=== PATIENT | female | born 1975 | race Caucasian/White ===

== ENCOUNTER 2018-05-09 06:10 | Emergency (ER) | payer MEDICARE, SELFPAY ==
[2018-05-09 06:16] VITALS: BP 125/76; PULSE 63; RESP 16; TEMP 36.9; O2SAT 98
--- NOTE | 2018-05-09 06:27 | W.ED.GENAD ---
Discharge Plan Disposition Patient Disposition: HOME Condition: Good Discharge Details Chief Complaint: Headache Clinical Impression: Headache Primary Care Provider: NONE,NONE ED Provider: Reginaldo Mcghee [place] Meds and New Rx's Prescriptions: Continue ibuprofen 200 MG capsule 600 mg PO Q6H PRN PRNQty: 0 RF: 0 acetaminophen 500 MG tablet 500 mg PO Q6H PRN PRNQty: 0 RF: 0 Discharge Instructions Instructions: General Headache (ED) Additional Instructions: Home and rest today. Care management will help with finding you primary care. Return to ED for fever, new/severe headache, neurological changes. Referrals: Care Management [Provider Group] Medical Decision Making MDM Narrative Medical decision making narrative: Patient with throbbing headache similar to headaches in past. No neuro findings on exam. Will place IV and give fluids, Benadryl, Reglan, Toradol and re-evaluate. 7:30 AM - Patient states nausea and vomiting better. Still has headache but it is better. Only gave half dose Toradol so will give second dose as well as Tylenol. 7:45 AM - Patient headache has pretty much resolved at this point. Will plan discharge. Does not have PCP so will have care management help in the process. HPI - General Adult General Mode of arrival: ambulatory. Date/Time Provider Initiated Documentation: 05/09/18 06:25. Limitations to Documentation: no limitations. Information obtained by: patient and family. HPI Narrative: Patient presents with left frontal throbbing headache. She has had headaches similar to this before. She does not get them very often. This started last night around 10. She has had nausea and has vomited multiple times. She has photophobia. She has no neurologic symptoms such as numbness, weakness, dizziness. She has not been ill prior to this. She has had no fever that she is aware of. There has been no trauma. Related Data Previous Rx's Medication Instructions Recorded acetaminophen 500 mg PO Q6H PRN PRN #0 01/25/18 ibuprofen 600 mg PO Q6H PRN PRN #0 01/25/18 Allergies Allergy/AdvReac Type Severity Reaction Status Date / Time No Known Allergies Allergy Unverified 05/09/18 06:27 General Stated Complaint: Headache HAI: 3 Review of Systems Constitutional Denies chills, Denies fever(s), Reports headache(s), Denies malaise and Denies weakness Eyes Patient Denies change in vision, Denies eye pain and Reports photophobia ENT Denies dizziness, Denies otalgia, Reports headache(s) and Denies sore throat Cardiovascular Denies chest pain, Denies syncope, Denies lightheadedness and Denies dyspnea Respiratory Denies cough and Denies dyspnea Gastrointestinal Denies abdominal pain, Denies diarrhea, Reports nausea and Reports vomiting Musculoskeletal Denies back pain, Denies myalgias, Denies arthralgias and Denies numbness Integumentary/Breasts Denies rash Neurologic Denies abnormal speech, Denies dizziness, Denies syncope, Reports headache(s), Denies focal weakness, Denies numbness, Denies sensory deficit and Denies weakness [facility] Social History Smoking/Tobacco Use Status: Current every day Surgical History History of surgery on arm (Chronic) IUD Exam Const General: cooperative, well developed and other (in dark room with towel over head/eyes) Nutritional Appearance: well nourished Orientation: alert and oriented x3 HENMT Head: normocephalic and atraumatic Eyes Pupils: PERRL EOM: EOM intact bilaterally Neck Neck: supple Resp Effort & Inspection: normal respiratory effort Auscultation: clear to auscultation bilaterally Cardio Rate: regular rate Rhythm: regular rhythm Heart Sounds: S1 normal and S2 normal GI Inspection: non-distended Palpation: soft, no guarding and nontender Skin General skin exam: other (warm and dry) Neuro General: alert, oriented x3, gait normal, moves all extremities, no meningeal signs, no focal motor deficits and CN's II-XI intact bilaterally Sensory Exam: no sensory deficits noted Course Vital Signs Temperature 98.4 F 05/09/18 06:16 Pulse 63 05/09/18 06:16 Respiratory Rate 16 05/09/18 06:16 Blood Pressure 125/76 05/09/18 06:16 Pulse Oximetry 98 05/09/18 06:16 Temperature 98.4 F 05/09/18 06:16 Pulse 63 05/09/18 06:16 Respiratory Rate 16 05/09/18 06:16 Blood Pressure 125/76 05/09/18 06:16 Pulse Oximetry 98 05/09/18 06:16
[2018-05-09] MEDS: Lactated Ringers 1,000 ML 1000 ML IV (06:44)
[2018-05-09] MEDS: diphenhydrAMINE 50 MG/ML VIAL 12.5 MG IVP (06:45)
--- NOTE | 2018-05-09 06:45 | ED.GENADUL_ITS ---
Discharge Plan Disposition Patient Disposition: HOME Condition: Good Discharge Details Chief Complaint: Headache Clinical Impression: Headache Primary Care Provider: NONE,NONE ED Provider: Rgeinaldo Mcghee [place] Meds and New Rx's Prescriptions: Continue ibuprofen 200 MG capsule 600 mg PO Q6H PRN PRNQty: 0 RF: 0 acetaminophen 500 MG tablet 500 mg PO Q6H PRN PRNQty: 0 RF: 0 Discharge Instructions Instructions: General Headache (ED) Additional Instructions: Home and rest today. Care management will help with finding you primary care. Return to ED for fever, new/severe headache, neurological changes. Referrals: Care Management [Provider Group] Medical Decision Making MDM Narrative Medical decision making narrative: Patient with throbbing headache similar to headaches in past. No neuro findings on exam. Will place IV and give fluids, Benadryl, Reglan, Toradol and re-evaluate. 7:30 AM - Patient states nausea and vomiting better. Still has headache but it is better. Only gave half dose Toradol so will give second dose as well as Tylenol. 7:45 AM - Patient headache has pretty much resolved at this point. Will plan discharge. Does not have PCP so will have care management help in the process. HPI - General Adult General Mode of arrival: ambulatory . Date/Time Provider Initiated Documentation: 05/09/18 06:25 . Limitations to Documentation: no limitations . Information obtained by: patient and family . HPI Narrative: Patient presents with left frontal throbbing headache. She has had headaches similar to this before. She does not get them very often. This started last night around 10. She has had nausea and has vomited multiple times. She has photophobia. She has no neurologic symptoms such as numbness, weakness, dizziness. She has not been ill prior to this. She has had no fever that she is aware of. There has been no trauma. Related Data Previous Rx's Medication Instructions Recorded acetaminophen 500 mg PO Q6H PRN PRN #0 01/25/18 ibuprofen 600 mg PO Q6H PRN PRN #0 01/25/18 Allergies Allergy/AdvReac Type Severity Reaction Status Date / Time No Known Allergies Allergy Unverified 05/09/18 06:27 General Stated Complaint: Headache HAI: 3 Review of Systems Constitutional Denies chills, Denies fever(s), Reports headache(s), Denies malaise and Denies weakness Eyes Patient Denies change in vision, Denies eye pain and Reports photophobia ENT Denies dizziness, Denies otalgia, Reports headache(s) and Denies sore throat Cardiovascular Denies chest pain, Denies syncope, Denies lightheadedness and Denies dyspnea Respiratory Denies cough and Denies dyspnea Gastrointestinal Denies abdominal pain, Denies diarrhea, Reports nausea and Reports vomiting Musculoskeletal Denies back pain, Denies myalgias, Denies arthralgias and Denies numbness Integumentary/Breasts Denies rash Neurologic Denies abnormal speech, Denies dizziness, Denies syncope, Reports headache(s), Denies focal weakness, Denies numbness, Denies sensory deficit and Denies weakness [facility] Social History Smoking/Tobacco Use Status: Current every day Surgical History History of surgery on arm (Chronic) IUD Exam Const General: cooperative, well developed and other (in dark room with towel over head/eyes) Nutritional Appearance: well nourished Orientation: alert and oriented x3 HENMT Head: normocephalic and atraumatic Eyes Pupils: PERRL EOM: EOM intact bilaterally Neck Neck: supple Resp Effort & Inspection: normal respiratory effort Auscultation: clear to auscultation bilaterally Cardio Rate: regular rate Rhythm: regular rhythm Heart Sounds: S1 normal and S2 normal GI Inspection: non-distended Palpation: soft, no guarding and nontender Skin General skin exam: other (warm and dry) Neuro General: alert, oriented x3, gait normal, moves all extremities, no meningeal signs, no focal motor deficits and CN's II-XI intact bilaterally Sensory Exam: no sensory deficits noted Course Vital Signs Temperature 98.4 F 05/09/18 06:16 Pulse 63 05/09/18 06:16 Respiratory Rate 16 05/09/18 06:16 Blood Pressure 125/76 05/09/18 06:16 Pulse Oximetry 98 05/09/18 06:16 Temperature 98.4 F 05/09/18 06:16 Pulse 63 05/09/18 06:16 Respiratory Rate 16 05/09/18 06:16 Blood Pressure 125/76 05/09/18 06:16 Pulse Oximetry 98 05/09/18 06:16
[2018-05-09] MEDS: Metoclopramide 10 MG/2 ML VIAL IVP (06:47)
[2018-05-09] MEDS: Ketorolac 15 MG/ML VIAL IVP ×2 (06:48→07:28)
[2018-05-09] MEDS: Acetaminophen 500 MG TAB 1000 MG PO (07:28)
[2018-05-09 07:42] VITALS: BP 121/69; PULSE 65; RESP 16; TEMP 37.1; O2SAT 100
--- NOTE | 2018-05-12 08:57 | CMPROGNOTE_ITS ---
Care Management Progress Note 05/12/18 Pt seen in ED on 05/09/[address] Maye Mcghee for headache, Pt needs PCP established. Referral faxed to [facility] as Jane Padron was stereo equipment salesperson.
== END 2018-05-09 08:05 | disposition home or self-care (01) ==
PROVIDERS: Emergency Provider Emergency Medicine
DX: R51 Headache (principal)
CPT/HCPCS: 96361; 96374; 96375; 96376; 99284; J1200; J1885; J2765

== ENCOUNTER 2018-07-25 21:11 | Emergency (ER) | payer MEDICARE, SELFPAY ==
[2018-07-25 21:14] VITALS: BP 150/86; PULSE 56; RESP 16; TEMP 36.8; O2SAT 100
--- NOTE | 2018-07-25 21:49 | NUR.NOTE ---
Nursing Note: Patient states, I've been thinking about it. Even if I did crack my tailbone, there's nothing you're going to be able to do. I'm going to try to wait it out at home, left without being seen by provider
== END 2018-07-25 21:42 ==
LOC: ER 21:45
PROVIDERS: Emergency Provider Emergency Medicine
DX: Z53.21 Procedure and treatment not carried out due to patient leaving prior to being seen by health care provider (principal)

== ENCOUNTER 2018-10-11 18:08 | Emergency (ER) | payer MEDICARE, SELFPAY ==
[2018-10-11 18:48] VITALS: BP 139/92; PULSE 103; RESP 18; TEMP 36.7; O2SAT 98
--- NOTE | 2018-10-11 19:02 | W.ED.GENAD ---
Discharge Plan Disposition Patient Disposition: HOME Condition: Stable Discharge Details Chief Complaint: Nausea/Vomit/Diar Clinical Impression: Viral illness Primary Care Provider: None,None ED Provider: Anthony Pinzon Home Meds and New Rx's Prescriptions: No Action ibuprofen 200 MG capsule 600 mg PO Q6H PRN PRNQty: 0 RF: 0 acetaminophen 500 MG tablet 500 mg PO Q6H PRN PRNQty: 0 RF: 0 Discharge Instructions Additional Instructions: If you have severe headaches with persistent vomit, difficulty breathing or severe chest pain return to the emergency department you can take 1000mg tylenol and 600mg ibuprofen every 6 hours for pain as needed Stand Alone Forms: Work Release Medical Decision Making 43 yo female comes in with cc of needing a work note to go back to school tomorrow. She states she had tomiss work this week due to headache and vomit. She states she has not had symptoms for 2 days and has no symptoms now. Has no headache now, no meninismus or other concerning findings on exam. Given lack of symptoms do not feel any work up indicated, likely had viral illness that resolved. Will provie work note and return precautions given Differential Diagnosis viral illness, needs work note HPI General Mode of arrival: ambulatory. Date/Time Provider Initiated Documentation: 10/11/18 18:51. Limitations to Documentation: no limitations. Information obtained by: patient. History of Present Illness 43 year old F presents to the emergency department with the chief complaint of needs a work note to return to work, Patient started experiencing this day(s) (1) No relieving factors improve symptom(s), No exacerbating factors reported . Patient did receive the following treatments prior to arrival, none Related Data Home Medications Medication Instructions Recorded Confirmed acetaminophen 500 mg PO Q6H PRN PRN #0 01/25/18 10/11/18 ibuprofen 600 mg PO Q6H PRN PRN #0 01/25/18 10/11/18 Previous Rx's Medication Instructions Recorded acetaminophen 500 mg PO Q6H PRN PRN #0 01/25/18 ibuprofen 600 mg PO Q6H PRN PRN #0 01/25/18 Allergies Allergy/AdvReac Type Severity Reaction Status Date / Time No Known Allergies Allergy Unverified 10/11/18 18:53 General Stated Complaint: Nausea/Vomit/Diar HAI: 3 Review of Systems Review of Systems All systems reviewed & are unremarkable except as noted in HPI and below Constitutional Denies chills and Denies weakness ENT Denies change in voice Cardiovascular Denies chest pain and Denies dyspnea Respiratory Denies cough and Denies dyspnea Gastrointestinal Denies abdominal pain Genitourinary Denies dysuria Musculoskeletal Denies joint swelling Integumentary/Breasts Denies rash Neurologic Denies weakness Endocrine Denies heat intolerance PFSH Surgical History History of surgery on arm (Chronic) IUD Social History Smoking and Tabacco status: Current every day Exam Const General: no acute distress Orientation: alert HENMT Head: normal to inspection Ears: external ears normal General nose exam: external nose normal Mouth: moist mucous membranes Eyes General: appearance normal, both eyes and all related structures Neck Neck: normal visual inspection Resp Effort & Inspection: normal respiratory effort and able to speak in complete sentences Cardio Rate: regular rate Skin General skin exam: no rashes or lesions noted Neuro General: alert and oriented x3 Extrem General: normal to inspection Psych Mental Status: mental status grossly normal Course Vital Signs Temperature 36.7 C 10/11/18 18:48 Pulse 103 H 10/11/18 18:48 Respiratory Rate 18 10/11/18 18:48 Blood Pressure 139/92 H 10/11/18 18:48 Pulse Oximetry 98 10/11/18 18:48 Temperature 36.7 C 10/11/18 18:48 Temperature Source Temporal Artery Scan 10/11/18 18:48 Pulse 103 H 10/11/18 18:48 Respiratory Rate 18 10/11/18 18:48 Respiratory Effort Non-Labored 10/11/18 18:52 Blood Pressure 139/92 H 10/11/18 18:48 Blood Pressure Position Sitting 10/11/18 18:48 Pulse Oximetry 98 10/11/18 18:48 Oxygen Delivery Method Room Air 10/11/18 18:48 Oxygen Flow Rate 0 10/11/18 18:48 Pain Level 2 10/11/18 18:48
--- NOTE | 2018-10-11 19:05 | ED.GENADUL_ITS ---
Discharge Plan Disposition Patient Disposition: HOME Condition: Stable Discharge Details Chief Complaint: Nausea/Vomit/Diar Clinical Impression: Viral illness Primary Care Provider: None,None ED Provider: Anthony Pinzon Home Meds and New Rx's Prescriptions: No Action ibuprofen 200 MG capsule 600 mg PO Q6H PRN PRNQty: 0 RF: 0 acetaminophen 500 MG tablet 500 mg PO Q6H PRN PRNQty: 0 RF: 0 Discharge Instructions Additional Instructions: If you have severe headaches with persistent vomit, difficulty breathing or severe chest pain return to the emergency department you can take 1000mg tylenol and 600mg ibuprofen every 6 hours for pain as needed Stand Alone Forms: Work Release Medical Decision Making 43 yo female comes in with cc of needing a work note to go back to school tomorrow. She states she had tomiss work this week due to headache and vomit. She states she has not had symptoms for 2 days and has no symptoms now. Has no headache now, no meninismus or other concerning findings on exam. Given lack of symptoms do not feel any work up indicated, likely had viral illness that res olved. Will provie work note and return precautions given Differential Diagnosis viral illness, needs work note HPI General Mode of arrival: ambulatory . Date/Time Provider Initiated Documentation: 10/11/18 18:51 . Limitations to Documentation: no limitations . Information obtained by: patient . History of Present Illness 43 year old F presents to the emergency department with the chief complaint of needs a work note to return to work, Patient started experiencing this day(s) (1) No relieving factors improve symptom(s), No exacerbating factors reported . Patient did receive the following treatments prior to arrival, none Related Data Home Medications Medication Instructions Recorded Confirmed acetaminophen 500 mg PO Q6H PRN PRN #0 01/25/18 10/11/18 ibuprofen 600 mg PO Q6H PRN PRN #0 01/25/18 10/11/18 Previous Rx's Medication Instructions Recorded acetaminophen 500 mg PO Q6H PRN PRN #0 01/25/18 ibuprofen 600 mg PO Q6H PRN PRN #0 01/25/18 Allergies Allergy/AdvReac Type Severity Reaction Status Date / Time No Known Allergies Allergy Unverified 10/11/18 18:53 General Stated Complaint: Nausea/Vomit/Diar HAI: 3 Review of Systems Review of Systems All systems reviewed & are unremarkable except as noted in HPI and below Constitutional Denies chills and Denies weakness ENT Denies change in voice Cardiovascular Denies chest pain and Denies dyspnea Respiratory Denies cough and Denies dyspnea Gastrointestinal Denies abdominal pain Genitourinary Denies dysuria Musculoskeletal Denies joint swelling Integumentary/Breasts Denies rash Neurologic Denies weakness Endocrine Denies heat intolerance PFSH Surgical History History of surgery on arm (Chronic) IUD Social History Smoking and Tabacco status: Current every day Exam Const General: no acute distress Orientation: alert HENMT Head: normal to inspection Ears: external ears normal General nose exam: external nose normal Mouth: moist mucous membranes Eyes General: appearance normal, both eyes and all related structures Neck Neck: normal visual inspection Resp Effort & Inspection: normal respiratory effort and able to speak in complete sen tences Cardio Rate: regular rate Skin General skin exam: no rashes or lesions noted Neuro General: alert and oriented x3 Extrem General: normal to inspection Psych Mental Status: mental status grossly normal Course Vital Signs Temperature 36.7 C 10/11/18 18:48 Pulse 103 H 10/11/18 18:48 Respiratory Rate 18 10/11/18 18:48 Blood Pressure 139/92 H 10/11/18 18:48 Pulse Oximetry 98 10/11/18 18:48 Temperature 36.7 C 10/11/18 18:48 Temperature Source Temporal Artery Scan 10/11/18 18:48 Pulse 103 H 10/11/18 18:48 Respiratory Rate 18 10/11/18 18:48 Respiratory Effort Non-Labored 10/11/18 18:52 Blood Pressure 139/92 H 10/11/18 18:48 Blood Pressure Position Sitting 10/11/18 18:48 Pulse Oximetry 98 10/11/18 18:48 Oxygen Delivery Method Room Air 10/11/18 18:48 Oxygen Flow Rate 0 10/11/18 18:48 Pain Level 2 10/11/18 18:48
== END 2018-10-11 19:25 | disposition home or self-care (01) ==
LOC: ER 20:10
PROVIDERS: Emergency Provider Emergency Medicine
DX: B34.9 Viral infection, unspecified (principal); Z02.79 Encounter for issue of other medical certificate
CPT/HCPCS: 99281

== ENCOUNTER 2018-12-24 19:04 | Emergency (ER) | payer MEDICARE, SELFPAY ==
[2018-12-24 19:06] VITALS: BP 121/83; PULSE 67; RESP 20; TEMP 36.5; O2SAT 99
[2018-12-24 20:01] LABS: Bilirubin Small (Negative); Blood Negative (Negative); Clarity Clear; Glucose Negative (Negative); Ketones Negative (Negative); Leukocyte Esterase Negative (Negative); Nitrite Negative (Negative); Specific Gravity >= 1.030 (1.005-1.025)
[2018-12-24 20:08] LABS: Bacteria Negative HPF (Negative); C & S Indicated? Yes; Casts Negative LPF (Negative); Crystals Negative HPF (Negative); Epithelial Cells Few HPF (Negative); Mucus Negative (Negative); Other Cells Negative (Negative)
[2018-12-24] MEDS: Ketorolac 30 MG/ML VIAL IVP (20:29)
[2018-12-24 20:34] LABS: Abs Immature Grans 0.01 k/cumm (0.0-0.09); Absolute Basophil Count 0.02 k/cumm (0.0-0.2); Absolute Eosinophil Count 0.26 k/cumm (0.0-0.7); Absolute Lymphocyte Count 2.18 k/cumm (1.2-3.4); Absolute Monocyte Count 0.52 k/cumm (0.11-0.7); Basophils % 0.3; Eosinophils % 4.2; HCT 39.3 % (36.0-46.0); HGB 12.9 g/dL (12.0-15.5); Immature Grans % 0.2; Lymphocytes % 35.2; Mean Corp. HGB Concentration 32.8 g/dL (32.0-36.0); Mean Corpuscular Hemoglobin 29.4 pg (27.0-33.0); Mean Corpuscular Volume 89.5 fL (80-95); Mean Platelet Volume 10.1 fL (8.0-11.0); Monocytes % 8.4; Neutrophils % 51.7; Platelet Count 192 x1000/uL (130-400); RBC 4.39 m/cumm (4.00-5.20); RBC Distribution Width 13.6 % (11.7-14.6); White Blood Cell Count 6.19 k/cumm (4.4-10.8)
[2018-12-24] MEDS: Ondansetron O.D.T. 4 MG TABEF (20:35)
[2018-12-24] MEDS: Normal Saline Flush 10 ML SYR IVP (20:36)
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
[2018-12-24] MEDS: Normal Saline 1,000 ML 1000 ML IV (20:40)
[2018-12-24 20:48] LABS: ALT 369 U/L (12-78); AST 174 U/L (15-37); Albumin 3.1 g/dL (3.4-5.0); Alkaline Phosphatase 441 U/L (46-116); BUN 22 mg/dL (7-18); Bilirubin, Total 0.2 mg/dL (0.2-1.0); Calcium 8.3 mg/dL (8.5-10.1); Chloride 100 mmol/L (98-107); Glucose 102 mg/dL (70-100); Potassium 4.1 mmol/L (3.5-5.1); Sodium 135 mmol/L (136-145); Total Protein 7.4 g/dL (6.4-8.2)
--- NOTE | 2018-12-24 21:27 | DI.CT_ITS ---
SYMPTOM/DIAGNOSIS: RT FLANK PAIN RENAL COLIC CT: The study was carried out according to the usual protocol. The lung bases are unremarkable. The liver is normal. There is a question regarding possible mild gallbladder wall thickening and faint adjacent stranding raising the possibility of acute cholecystitis. No gallstones are identified. There is no biliary dilatation. Further evaluation with ultrasound could be considered if there is any further clinical question. The pancreas, spleen and adrenals are normal. There is mild ectasis of the right renal calyceal system without pelvic dilatation or significant ureteral dilatation. In the right hemipelvis, there is a 2.9 mm. calcification and it is difficult to clearly delineate the course of the right ureter in this region, however the possibility of a distal ureteral calculus could not be excluded. The left kidney and left collecting system are unremarkable. There is no evidence of bowel obstruction. There is questionable wall thickening involving the colon at the hepatic flexure near the gallbladder which could represent mild reactive colonic wall thickening secondary to cholecystitis. The appendix is normal. The bladder is unremarkable. An IUD is noted in the uterus. A small quantity of intraperitoneal free fluid is noted in the pelvis which is within the physiologic range of normal. No acute bony abnormality is seen. The soft tissues are unremarkable. There is no aortic aneurysm. There is no lymphadenopathy. SUMMARY: The appendix is normal. There is no evidence of bowel obstruction, perforation or an abscess. The gallbladder wall may be slightly thickened and there is a question regarding adjacent stranding. Acute cholecystitis could not be entirely excluded. No gallstones are evident. There is no biliary dilatation. This patient could be further assessed with a gallbladder ultrasound. There is question of mild right caliectasis with a question regarding a 2.9 mm. calcification in the right hemipelvis which could represent a small distal ureteral calculus.
--- NOTE | 2018-12-24 21:47 | DI.VRAD_ITS ---
EXAM: CT Abdomen and Pelvis Without Contrast EXAM DATE/TIME: 12/24/2018 9:12 PM CLINICAL HISTORY: 43 years old, female; Abdominal pain; Flank; Right TECHNIQUE: Imaging protocol: Axial computed tomography images of the abdomen and pelvis without contrast. Coronal and sagittal reformatted images were created and reviewed. Radiation optimization: All CT scans at this facility use at least one of these dose optimization techniques: automated exposure control; mA and/or kV adjustment per patient size (includes targeted exams where dose is matched to clinical indication); or iterative reconstruction. COMPARISON: No relevant prior studies available. FINDINGS: Lower thorax: Heart size normal. Visualized lug bases are clear. ABDOMEN: Liver: Normal size and contour. No mass lesions. Gallbladder and bile ducts: Question mild gallbladder wall thickening and faint adjacent stranding suspicious for possible cholecystitis. No gallstones are evident by CT. No biliary dilatation. Consider right upper quadrant ultrasound for further characterization. Pancreas: Normal. No inflammatory changes or ductal dilation. Spleen: Normal. No splenomegaly. Adrenals: Normal. No adrenal mass. Kidneys and ureters: Mild ectasia of the right renal calyces without pelvis dilatation or significant ureteral dilatation. In the right hemipelvis on series 2 image 86 there is a 2.9 mm calcification. It is difficult to clearly delineate the course of the ureter in this region however this lies along the expected ureteral course and it is difficult to exclude a small distal right ureteral stone. The left kidney and left collecting system are unremarkable. Stomach and bowel: Esophagus and stomach are unremarkable. The small bowel is unremarkable. Question mild wall thickening in the colon at the hepatic flexure near the gallbladder which could represent mild reactive colonic wall thickening secondary cholecystitis. Appendix: Normal. No evidence of appendicitis. PELVIS: Bladder: Unremarkable as visualized. Reproductive: IUD in the uterus well positioned. ABDOMEN and PELVIS: Intraperitoneal space: Small amount of intraperitoneal free fluid in the pelvis, within physiologic range for a young woman. Bones/joints: No acute osseous abnormalities. Soft tissues: Unremarkable. Vasculature: Normal. No abdominal aortic aneurysm. Lymph nodes: No adenopathy. IMPRESSION: 1. Normal appendix. No evidence of bowel obstruction, perforation, or abscess. 2. Gallbladder wall appears slightly thickened with adjacent minimal stranding. A mild element of cholecystitis is difficult to exclude. No gallstones are evident. No biliary dilatation. Consider right upper quadrant ultrasound for further assessment. 3. Question mild caliectasis in the right kidney, with a 2.9 mm calcification in the right hemipelvis along the expected course of the right ureter. The ureter itself is difficult to delineate in this region due to the numerous local vessels and bowel loops. It is difficult to exclude a passing distal right ureteral stone with only minimal hydronephrosis. Dictated and Authenticated by: Jerald Deleon MD. Ordering:CHHAYA Haas MD
[2018-12-24 21:52] VITALS: BP 142/77; PULSE 50; RESP 16; O2SAT 100
[2018-12-24 22:20] LABS: Lipase 140 U/L (73-393)
[2018-12-24 23:43] VITALS: BP 142/77; PULSE 50; RESP 16; O2SAT 100
[2018-12-26 15:15] LABS: Hepatitis A Antibody IgM Negative (NEGAT); Hepatitis B Core Antibody Negative (NEGAT); Hepatitis B surface Ag Negative (NEGAT); Hepatitis C Ab w Rflx HCV PCR Reactive (NEGAT)
[2018-12-29 14:24] LABS: HCV RNA Detection Quantitative Undetected IU/mL (UNDECT)
== END 2018-12-24 23:46 | disposition home or self-care (01) ==
PROVIDERS: Nurse Practitioner Family; Emergency Provider Emergency Medicine
DX: R10.9 Unspecified abdominal pain (principal)
CPT/HCPCS: 36415; 80053; 81025; 83690; 86704; 86709; 86803; 87340; 96361; 96374; 99284; 74176; 81003; 81015; 85025; 87086; 87522; J1885

== ENCOUNTER 2019-02-28 14:11 | Emergency (ER) | payer MEDICARE, SELFPAY ==
[2019-02-28 14:14] VITALS: BP 116/79; PULSE 88; RESP 18; TEMP 36.7; O2SAT 98
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
[2019-02-28] MEDS: Normal Saline 1,000 ML 1000 ML IV (14:40)
[2019-02-28] MEDS: Ondansetron 4 MG/2 ML VIAL IVP (14:45)
[2019-02-28] MEDS: Ketorolac 30 MG/ML VIAL IVP (14:50)
[2019-02-28 16:01] VITALS: BP 110/72; PULSE 80; RESP 16; TEMP 36.7; O2SAT 98
--- NOTE | 2019-03-07 11:38 | NUR.NOTE ---
New PCP referral sent to [facility]. Dr Jacobsen telephone doc.Nursing Note:
== END 2019-02-28 15:57 | disposition home or self-care (01) ==
PROVIDERS: Emergency Provider Emergency Medicine
DX: G43.909 Migraine, unspecified, not intractable, without status migrainosus (principal)
CPT/HCPCS: 96361; 96374; 96375; 99284; J1885; J2405

== ENCOUNTER 2019-07-19 02:51 | Emergency (ER) | payer MEDICARE, SELFPAY ==
[2019-07-19 02:55] VITALS: BP 136/97; PULSE 110; RESP 16; TEMP 36.6; O2SAT 99
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
[2019-07-19] MEDS: Acetaminophen 500 MG TAB 1000 MG PO (03:10)
[2019-07-19] MEDS: Normal Saline 1,000 ML 1000 ML IV (03:11)
[2019-07-19] MEDS: Ketorolac 15 MG/ML VIAL IVP (03:11)
[2019-07-19] MEDS: Dexamethasone 10 MG/ML VIAL IVP (03:11)
[2019-07-19] MEDS: Prochlorperazine 10 MG/2 ML VIAL IVP (03:11)
[2019-07-19 04:14] VITALS: BP 112/73; PULSE 96; RESP 16; TEMP 36.6; O2SAT 100
--- NOTE | 2019-07-19 04:15 | NUR.NOTE ---
Pain improved after medication. IV removed. Discharge instructions reviewed with verbal understanding. aware to f/u with pcp as needed. ambulated to exit with steady gait.
== END 2019-07-19 04:10 | disposition home or self-care (01) ==
PROVIDERS: Emergency Provider Emergency Medicine
DX: J02.0 Streptococcal pharyngitis (principal); G43.909 Migraine, unspecified, not intractable, without status migrainosus
CPT/HCPCS: 87880; 96361; 96372; 96374; 96375; 99284; J0561; J0780; J1100; J1885

== ENCOUNTER 2019-09-29 21:35 | Emergency (ER) | payer MEDICARE, SELFPAY ==
[2019-09-29 21:47] VITALS: BP 121/71; PULSE 66; RESP 20; TEMP 36.7; O2SAT 98
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
[2019-09-29] MEDS: Ondansetron O.D.T. 4 MG TABEF, 3 TABS/BTL PO (22:55)
[2019-09-29 22:56] VITALS: BP 121/71; PULSE 66; RESP 20; TEMP 36.7; O2SAT 98
== END 2019-09-29 23:10 | disposition home or self-care (01) ==
PROVIDERS: Emergency Provider Physician Assistant
DX: R11.2 Nausea with vomiting, unspecified (principal); K52.9 Noninfective gastroenteritis and colitis, unspecified; Z02.79 Encounter for issue of other medical certificate
CPT/HCPCS: 99283

== ENCOUNTER 2020-01-13 18:24 | Emergency (ER) | payer MEDICARE, SELFPAY ==
[2020-01-13 18:28] VITALS: BP 130/77; PULSE 70; RESP 16; TEMP 36.8; O2SAT 100
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
== END 2020-01-13 19:02 | disposition home or self-care (01) ==
PROVIDERS: Emergency Provider Physician Assistant
DX: T23.101A Burn of first degree of right hand, unspecified site, initial encounter (principal); X12.XXXA Contact with other hot fluids, initial encounter
CPT/HCPCS: 16000

== ENCOUNTER 2020-05-25 20:09 | Emergency (ER) | payer MEDICARE, SELFPAY ==
[2020-05-25 20:23] VITALS: BP 127/75; PULSE 70; RESP 18; TEMP 37; O2SAT 99
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
[2020-05-25] MEDS: diphenhydrAMINE 50 MG/ML VIAL 25 MG IVP (21:31)
[2020-05-25] MEDS: Lactated Ringers 1,000 ML 1000 ML IV (21:32)
[2020-05-25] MEDS: Ketorolac 15 MG/ML VIAL IVP (21:32)
[2020-05-25] MEDS: Metoclopramide 10 MG/2 ML VIAL IVP (21:32)
[2020-05-25 22:36] VITALS: BP 114/77; PULSE 62; RESP 16; TEMP 37; O2SAT 100
== END 2020-05-25 22:42 | disposition home or self-care (01) ==
PROVIDERS: Emergency Provider Emergency Medicine
DX: G43.809 Other migraine, not intractable, without status migrainosus (principal); R11.2 Nausea with vomiting, unspecified; Z11.59 Encounter for screening for other viral diseases
CPT/HCPCS: 96361; 96374; 96375; 99284; 99283; J1200; J1885; J2765

== ENCOUNTER 2020-06-30 19:57 | Emergency (ER) | payer MEDICARE, SELFPAY ==
[2020-06-30 20:04] VITALS: BP 138/89; PULSE 86; RESP 16; TEMP 36.7; O2SAT 97
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
[2020-06-30] MEDS: Ketorolac 30 MG/ML VIAL IVP (21:16)
[2020-06-30] MEDS: Metoclopramide 10 MG/2 ML VIAL IVP (21:16)
[2020-06-30] MEDS: Normal Saline 1,000 ML 1000 ML IV (21:16)
[2020-06-30 21:23] VITALS: BP 116/68; PULSE 58; RESP 14; TEMP 36.7; O2SAT 99
[2020-06-30 22:00] VITALS: BP 117/75; PULSE 56; RESP 12; O2SAT 98
[2020-07-05 18:01] LABS: Patient Race White; SARS-CoV-2 RNA Undetected (Undetected); SARS-CoV-2 Specimen Source Nasopharynx
--- NOTE | 2020-07-06 11:48 | NUR.NOTE ---
Negative Covid test result given to pt-verbalizes understanding.Nursing Note:
--- NOTE | 2020-07-06 17:00 | NUR.NOTE ---
Nursing Note: Patient called stating she needed a copy of her COVID result to take to her employer for confirmation. A copy is made and she will pick it up tomorrow. Sulema Fountain
== END 2020-06-30 22:17 | disposition home or self-care (01) ==
PROVIDERS: Emergency Provider Emergency Medicine
DX: R51.9 Headache, unspecified (principal); Z11.59 Encounter for screening for other viral diseases
CPT/HCPCS: 96374; 96375; 99284; U0003; J1885; J2765

== ENCOUNTER 2021-02-15 04:04 | Outpatient (CLI) | payer MEDICARE, SELFPAY ==
[2021-02-15 07:56] LABS: Bilirubin Negative (Negative); Blood Small (Negative); Clarity Clear (Clear); Glucose Negative (Negative); Ketones Negative (Negative); Leukocyte Esterase Negative (Negative); Nitrite Negative (Negative); Specific Gravity >= 1.030 (1.005-1.025); Urobilinogen 0.2 EU/dL (Up TO 0.2); pH 5.5 (5-8)
[2021-02-15 07:58] LABS: HCT 44.9 % (36.0-46.0); HGB 14.6 g/dL (11.2-15.7); MCH 30.5 pg (27.0-33.0); MCHC 32.5 % (32.0-36.0); MCV 93.7 fL (80-95); Platelet Count 211 10^3/uL (130-400); RBC 4.79 10^6/uL (3.93-5.22); RDW 12.1 % (11.7-14.6); RDW-SD 42.5 fL
[2021-02-15 08:07] LABS: Bacteria Rare HPF (Negative); C & S Indicated? No; Casts Negative LPF (Negative); Crystals Negative HPF (Negative); Epithelial Cells Few HPF (Negative); Mucus Negative (Negative); RBC 0-2 HPF (0-2); WBC 0-2 HPF (0-5)
[2021-02-15 09:30] LABS: ALT 156 U/L (14-59); AST 53 U/L (15-37); Albumin 3.5 g/dL (3.4-5.0); Alkaline Phosphatase 107 U/L (46-116); Anion Gap 7.4 mmol/L (3-11); BUN 15 mg/dL (7-18); Bilirubin, Total 0.2 mg/dL (0.2-1.0); CO2 29.6 mmol/L (21.0-32.0); CREATININE 0.7 mg/dL (0.55-1.02); Calcium 8.9 mg/dL (8.5-10.1); Calculated LDL 107 mg/dL (<100); Chloride 105 mmol/L (98-107); Cholesterol 177 mg/dL (<200); Ferritin 80 ng/mL (8-252); Glucose 94 mg/dL (74-106); HDL Cholesterol 39 mg/dL (40-60); Magnesium 1.7 mg/dL (1.8-2.4); Potassium 4.2 mmol/L (3.5-5.1); Sodium 142 mmol/L (136-145); TSH (W/Ref FT4) 1.92 uIU/mL (0.36-3.74); Total Protein 7.7 g/dL (6.4-8.2); Triglyceride 159 mg/dL (<150); Vitamin B12 698 pg/mL (193-986)
[2021-02-16 10:40] LABS: HIV-1/2 Ag & Ab Screen Negative (Negative)
[2021-02-16 11:24] LABS: Hepatitis C Ab w Rflx HCV PCR Reactive (Negative)
[2021-02-17 14:07] LABS: HCV RNA Qualitative Detected (Undetected)
== END 2021-02-15 04:05 | disposition home or self-care (01) ==
LOC: LBO 04:05
PROVIDERS: PCP Nurse Practitioner Adult Health; Visit Provider Nurse Practitioner Adult Health
DX: R53.83 Other fatigue (principal); G43.909 Migraine, unspecified, not intractable, without status migrainosus; R35.1 Nocturia; Z11.4 Encounter for screening for human immunodeficiency virus [HIV]; Z11.59 Encounter for screening for other viral diseases; Z13.220 Encounter for screening for lipoid disorders; Z13.1 Encounter for screening for diabetes mellitus; G25.81 Restless legs syndrome; Z83.3 Family history of diabetes mellitus; Z00.00 Encounter for general adult medical examination without abnormal findings; R79.89 Other specified abnormal findings of blood chemistry; Z79.899 Other long term (current) drug therapy
CPT/HCPCS: 80053; 80061; 85027; 86803; 87389; 87522; 81003; 81015; 82607; 82728; 83735; 84443

== ENCOUNTER 2021-05-25 18:26 | Outpatient (REF) | payer MEDICARE, SELFPAY ==
[2021-05-27 12:04] LABS: COVID-19 RT-PCR UVMMC Result Negative (Negative)
== END 2021-05-25 18:27 | disposition home or self-care (01) ==
LOC: NCHCN 18:26
PROVIDERS: PCP Nurse Practitioner Adult Health; Visit Provider Nurse Practitioner
DX: Z20.822 Contact with and (suspected) exposure to COVID-19 (principal); R05 Cough; R06.2 Wheezing
CPT/HCPCS: U0003; U0005

== ENCOUNTER 2021-06-15 01:48 | Outpatient (CLI) | payer MEDICARE, SELFPAY ==
--- NOTE | 2021-06-15 08:15 | DI.MAMMO_ITS ---
Exam(s) MAMMO SCREENING EXAM: MAMMO SCREENING CLINICAL HISTORY: screening,Z12.39 TECHNIQUE: Mammograms were interpreted according to the usual protocol including computer analysis w [facility] CAD system, tomosynthesis and C-view imaging. COMPARISON: FINDINGS: The breasts are heterogeneously dense. No dominant mass or clumped microcalcification is identified in either breast. The current examination is a baseline examination. IMPRESSION: No specific evidence of malignancy at this time. Routine screening examinations are suggested at yea rly intervals in this age group according to the ACS ACR guidelines. BI-RADS Category 1 - Negative Breast Density - Category C - Heterogeneously dense
== END 2021-06-15 02:08 ==
PROVIDERS: PCP Nurse Practitioner Adult Health; Visit Provider Nurse Practitioner Adult Health
DX: Z12.31 Encounter for screening mammogram for malignant neoplasm of breast; R92.8 Other abnormal and inconclusive findings on diagnostic imaging of breast
CPT/HCPCS: 77063; 77067

== ENCOUNTER → 2021-06-21 00:58 | Outpatient (CLI) | payer MEDICARE, SELFPAY ==
--- NOTE | 2021-06-21 07:14 | DI.US_ITS ---
Exam(s) US ABDOMEN EXAM: US ABDOMEN CLINICAL HISTORY: Assess liver,HEP C,B19.20 TECHNIQUE: Ultrasound abdomen performed using standard protocol. COMPARISON: CT CT renal colic wo from 12/24/[address] renal colic wo from 12/24/2018 FINDINGS: ABDOMINAL AORTA AND IVC: Visualized portions normal caliber. PANCREAS: Normal where visualized. LIVER: Normal. Hepatopedal flow in the Portal Vein. No evidence of a hepatic mass. GALLBLADDER: There are few tiny echogenic foci in the gallbladder which may represent small stones. No evidence of wall thickening. No pericholecystic fluid identified. BILIARY SYSTEM: Common bile duct measures < 7 mm. No intrahepatic biliary ductal dilation. KAPADIA'S SIGN: Negative. KIDNEYS: Kidneys are symmetric in size. No evidence of renal calculi. No evidence of hydronephrosis. No renal mass or cyst identified. SPLEEN: Not enlarged. ASCITES: None seen. IMPRESSION: 1. No evidence of a hepatic mass. 2. Few tiny echogenic foci within the gallbladder lumen which may represent small stones. DATA REPOSITORY:
== END ==
PROVIDERS: PCP Nurse Practitioner Adult Health; Visit Provider Nurse Practitioner Adult Health
DX: B19.20 Unspecified viral hepatitis C without hepatic coma (principal); K82.8 Other specified diseases of gallbladder
CPT/HCPCS: 76700

== ENCOUNTER → 2022-07-17 02:53 | Outpatient (CLI) | payer OTHER, SELFPAY ==
--- NOTE | 2022-07-17 12:48 | DI.MAMMO_ITS ---
Exam(s) MAMMO SCREENING EXAM: MAMMO SCREENING CLINICAL HISTORY: screening,z12.39. TECHNIQUE: Bilateral full field digital CC and MLO mammographic images were obtained with 3D tomosyn thesis and utilizing computer aided detection (CAD). COMPARISON: Prior baseline mammogram of June 2021 was reviewed. FINDINGS: The fibroglandular tissue pattern is again noted be moderately dense. There are no CAD designations. There are no new spiculated masses nor malignant appearing microcalcification groups. There is no significant architectural distortion nor skin thickening-retraction. IMPRESSION: No radiographic evidence of malignancy. BI-RADS Category 1 - Negative Breast Density - Category C - Heterogeneously dense Breast density Category C or D implies that the patient has dense breast tissue. Dense breast tissue can make it harder to find cancer on a mammogram. Dense breast tissue is also associated with an incr eased risk of breast cancer. This information about the result of the mammogram report was provided to the patient to raise their awareness. Use this report when you speak with the patient about their risks for breast cancer, which includes their family history. At that time, you may recommend additional screening tests (Ultrasoun d or MRI) as these tests may add significant information. A negative radiographic report should not delay biopsy if a dominant or clinically suspicious mass is present. Up to ten percent of cancers are not identified on mammography. A negative report may reinforce clinical impression. Adenosis and dense breasts may obscure an underlying neoplasm. False positive reports average 6 to 10%. Patient will receive a letter notifying them of these results.
== END ==
PROVIDERS: PCP Nurse Practitioner Adult Health; Visit Provider Nurse Practitioner
DX: Z12.31 Encounter for screening mammogram for malignant neoplasm of breast (principal); R92.8 Other abnormal and inconclusive findings on diagnostic imaging of breast
CPT/HCPCS: 77063; 77067

== ENCOUNTER 2022-11-22 12:51 | Outpatient (REF) | payer OTHER, SELFPAY ==
--- NOTE | 2022-11-22 11:00 | PAPFT_PTH ---
PATIENT: Marilin Lin LOC: [facility] U#:[id number] AGE/SX: 47/F ROOM: RE11/22/[address]: Phyllis Navarro APRN : 1975 BED: DIS: 11/22/2022 SPEC #: [id number] RECD: 11/22/22 16:18 STATUS: RADHA REJody #: [id number] BASSAM: 11/22/22 11:[address]: Phyllis Navarro DEPT: [facility] Cytology RECD BY: Sammie Jorge Tissues: 1 - CX/ENDOCX FOR PAP SMEARS Procedures: PAP THIN PREP/UVM Screening HPV DNA PROBE Comments: [id number]
== END 2022-11-22 12:52 | disposition home or self-care (01) ==
LOC: LBN 12:51
PROVIDERS: PCP Nurse Practitioner Adult Health; Referring Provider Nurse Practitioner Adult Health; Visit Provider Nurse Practitioner Adult Health
DX: Z11.51 Encounter for screening for human papillomavirus (HPV); A59.01 Trichomonal vulvovaginitis; Z01.419 Encounter for gynecological examination (general) (routine) without abnormal findings
CPT/HCPCS: 88142; 87624

== ENCOUNTER 2023-08-01 11:33 | Emergency (ER) | payer OTHER, SELFPAY ==
[2023-08-01 11:36] VITALS: BP 121/78; PULSE 74; RESP 16; TEMP 36.8; O2SAT 96
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
--- OUTSIDE RECORDS SUMMARY | 2023-08-01 11:51 | XMS_ITS | Continuity of Care Document ---
Author Name Unknown Organization [facility] Address [address] [place] [id number] Care Team Providers Care Hearing Therapy Teacher Name Role Phone HALIMA JOHNSON Primary Care Physician [phone] Encounter [facility] FIN NBR [id number] Date(s): 07/24/22 - 07/24/[address] [address]- Discharge Disposition: Home or Self Care Attending Physician: Jumana Browne APRN Admitting Physician: Jumana Browne APRN Allergies, Adverse Reactions, Alerts No Known Allergies Assessment and Plan Future Appointments Diagnostic Tests Pending * HCV RNA by PCR, Qn Rfx Leda GRAPH LC 07/24/22 Medications albuterol 90 mcg/inh aerosol inhaler 1 [...] reduction and internal fixation of fracture Completed Results Laboratory List Name Date CBC w/ Diff 07/24/22 Comprehensive Metabolic Panel (CMP) 07/04 10/24 Ferritin 07/24/22 HIV Ag/Ab Combo 1/2 (HIV 1/0/2 Antibodie s, p24 Ag) 07/24/22 Hep A Ab, Total LC 07/24/22 Hep B Core Ab, Tot LC 07/24/22 Hepatitis B Surface Antibody 07/24/22 Hepatitis B Surface Antigen 07/24/22 Automated Diff 07/24/22 Most recent to oldest [Reference Range]: 1 WBC [4.8-10.8 K/mcL] 7.5 K/mcL (07/24/22 11:33 AM) RBC [4.20-6.10 Million/mcL] 4.69 Million /mcL (07/24/22 11:33 AM) Neutro Auto [42.2-75.2 %] 59.7 % (07/24/22 11: AM) Lymph Auto [20.5-51.1 %] 29.9 % (07/24/22 11: AM) [place] Auto [1.7-9.3 %] 6.8 % (07/24/22 11: AM) Basophil Auto [0.0-0.8 %] 0.4 % (07/24/22 11:33 AM) BUN [8-26 mg/dL] 17 mg/dL (07/24/22 11:33 AM) Glucose Level [74-106 mg/dL] 84 mg/dL (07/24/22 11: AM) Potassium Level [3.5-5.1 mmol/L] 4.5 mmo l/L (07/24/22 11:33 AM) Baso Absolute [0.0-0.2 K/mcL] 0.0 K/mcL (07/24/22 11: AM) MCV [80.0-99.0 fL] 91.7 fL (07/24/22 11:33 AM) AST [15-41 IntlUnit/L] 29 IntlUnit/L (07/24/22 11:33 AM) ALT [14-54 IntlUnit/L] 31 IntlUnit/L (07/24/22 11:33 AM) MCHC [32.0-36.0 g/dL] 33.0 g/dL (07/24/22 11:33 AM) Osmolality [275-295 mOsm/kg] 273 mOsm/kg *LOW* (07/24/22 11: AM) Sodium Level [134-143 mmol/L] 136 mmol/L (07/24/22 11:33 AM) Lymph Absolute [1.2-3.4 K/mcL] 2.2 K/mcL (07/24/22 AM) Hct [37.0-52.0 %] 43.0 % (07/24/22: AM) Calcium Level [8.9-10.3 mg/dL] 9.5 mg/dL (07/24/22 AM) [place] Absolute [0.1-0.6 K/mcL] 0.5 K/mcL (07/24/22 11 AM) Albumin Level [3.5-5.0 g/dL] 4.0 g/dL (07/24/22 AM) Protein Total [6.5-8.1 g/dL] 7.5 g/dL (07/24/22 11: AM) MCH [27.0-31.0 pg] 30.3 pg (07/24/22 AM) Neutro Absolute [1.4-6.5 K/mcL] 4.5 K/mc L (07/24/22: AM) Bilirubin Total [0.2-1.2 mg/dL] 0.3 mg/d L (07/24/22 AM) Hgb [12.0-18.0 g/dL] 14.2 g/dL (07/24/22 11: AM) Alk Phos [38-130 IntlUnit/L] 79 IntlUnit /L (07/24/22 11 AM) MPV [7.4-10.4 fL] 9.7 fL (07/24/22 11: AM) Ferritin Level [11.0-307.0 ng/mL] 62.3 n g/mL (07/24/22 AM) Hep Bs Ag [Non Reactive] Non Reactive (07/24/22 AM) Platelets [130-400 K/mcL] 197 K/mcL (07/24/22: AM) CO2 [22-32 mmol/L] 27 mmol/L (07/24/22 AM) Eos Absolute [0.0-0.2 K/mcL] 0.2 K/mcL (07/24/22 11:33 AM) Hep B Surface Ab <3.10 *NA* (07/24/22 11:33 AM) eGFR Non-AA 107 *NA* (07/24/22 11:33 AM) eGFR AA 107 *NA* (07/24/22 11:33 AM) Chloride Level [98-111 mmol/L] 99 mmol/L (07/24/22 11:33 AM) RDW-CV [11.5-14.5 %] 12.0 % (07/24/22 11:33 AM) A/G Ratio 1.1 *NA* (07/24/22 11:33 AM) BUN/Creat Ratio [8.0-20.0] 25.0 *HI* (07/24/22 11:33 AM) Globulin 3.5 *NA* (07/24/22 11:33 AM) Imm Gran Absolute 0.02 *NA* (07/24/22 11:33 AM) Imm Gran Auto [0.0-0.5 %] 0.3 % (07/24/22 11:33 AM) Hep A Ab, Ttl LC [Negative] Positive 1 *ABN* (07/24/22 11:33 AM) Hep B Core Ab, Tot LC [Negative] Negativ e 2 *NA* (07/24/22 11:33 AM) Creatinine Level [0.44-1.00 mg/dL] 0.68 mg/dL (07/24/22 11:33 AM) Anion Gap [3.0-12.0] 10.0 (07/24/22 11:33 AM) HIV 1/2 Ag/Ab Combo by CMIA [Non Reactiv e] Non Reactive (07/24/22 11:33 AM) Eos, Auto [0.00-3.00 %] 2.90 % (07/24/22 11:33 AM) 1Result Comment: Performed At: [facility] [address] [place] [id number] Smith Sorto MD Ph:[phone] 2Result Comment: Performed At: [facility] [address] [place] [address] [id number] Smith Sorto MD Ph:[phone] Social History Social History Type Response Tobacco Current everyday tob acco user Tobacco Use:. Sex Patient Care team information Personnel Name: HALIMA JOHNSON Address: Address: [address] [place] [phone]
--- NOTE | 2023-08-01 12:15 | DI.RAD_ITS ---
Exam(s) XR ANKLE RT COMPLETE EXAM: XR ANKLE RT COMPLETE CLINICAL HISTORY: ankle pain fall. TECHNIQUE: 2D digital imaging was performed. COMPARISON: No exams were available for comparison FINDINGS: 3 views No evidence of fracture or widening of the ankle mortise. Talar dome unremarkable. No soft tissue s welling. Bone density normal. No osseous lesions. No osseous tarsal coalition. IMPRESSION: No significant osseous findings in the ankle. DATA REPOSITORY: RADIATION DOSE DELIVERED:
--- NOTE | 2023-08-01 12:15 | DI.CT_ITS ---
Exam(s) CT HEAD CERVICAL SPINE WO EXAM: CT HEAD CERVICAL SPINE WO CLINICAL HISTORY: fall. TECHNIQUE: Imaging Protocol: Axial computed tomography images with coronal and sagittal reformatted images were created and reviewed COMPARISON: CT HEAD WITHOUT CONTRAST from 05/22/2017 FINDINGS: BRAIN: No skull fractures. However, there is significant mucosal thickening in the right maxillary sinus an d a lesser amount of mucosal thickening in the left maxillary sinus. No distinct fluid levels. Ther e is periosteal thickening in both maxillary sinuses indicating an element of chronicity. Remainder of the paranasal sinuses appear unremarkable as do the mastoid air cells. There is no evidence of intracranial hemorrhage, mass effect, or shift of midline structures. There are no extra-axial fluid collections. The ventricles are not enlarged or shifted and there is no blo od within the ventricular system nor within the basal cisterns. CERVICAL SPINE: There is no evidence of fracture nor acute appearing listhesis. No significant prevertebral soft tis maria esther swelling. There is reversal normal curvature. There is advanced chronic disc space narrowing at C5-6 and anter ior osteophytes. Similar findings at C6-7. Stem facet joint degenerative changes but no evidence of facet joint malalignment. There is no significant facet joint malalignment. No significant osseous lesions evident. IMPRESSION: No acute intracranial findings on this noninfused CT scan of the brain.Paranasal sinus disease as monse cribed above. No evidence of cervical spine fracture, malalignment, nor acute compromise of the cervical spinal can al. Multilevel chronic degenerative disc disease and facet arthropathy evident. Called by myself to ER. RADIATION DOSE DELIVERED: Total DLP DATA REPOSITORY: All CT scans at this facility are submitted to the National Radiology Data Registry (NRDR) Dose Index Registry (DIR) with the [employer] (A[employer]). RADIATION OPTIMIZATION: All CT scans at this facility use at least one of these dose optimization te chniques: automated exposure control; mA and/or kV adjustment per patient size (includes targeted exa ms where dose is matched to clinical indication); or iterative reconstruction.
[2023-08-01 12:52] LABS: Abs Immature Grans 0.02 10^3/uL (0.0-0.06); Absolute Basophil Count 0.03 10^3/uL (0.0-0.2); Absolute Eosinophil Count 0.11 10^3/uL (0.0-0.7); Absolute Lymphocyte Count 1.66 10^3/uL (1.2-3.4); Absolute Monocyte Count 0.37 10^3/uL (0.1-0.8); Absolute Neutrophil Count 4.14 10^3/uL (1.2-6.7); Basophils % 0.5; Eosinophils % 1.7; HCT 42.1 % (36.0-46.0); HGB 13.7 g/dL (11.2-15.7); Immature Grans % 0.3; Lymphocytes % 26.2; MCH 29.5 pg (27.0-33.0); MCHC 32.5 % (32.0-36.0); MCV 91 fL (80-95); MPV 9.9 fL (8.0-11.0); Monocytes % 5.8; Neutrophils % 65.5; Platelet Count 193 10^3/uL (130-400); RBC 4.64 10^6/uL (3.93-5.22); RDW-SD 47.2 fL; WBC 6.33 10^3/uL (4.4-10.8)
[2023-08-01 13:06] LABS: ALT 217 U/L (14-59); AST 72 U/L (15-37); Albumin 3.3 g/dL (3.4-5.0); Alkaline Phosphatase 118 U/L (46-116); Anion Gap 6.7 mmol/L (3-11); BUN 20 mg/dL (7-18); Bilirubin, Total 0.4 mg/dL (0.2-1.0); CO2 30.3 mmol/L (21.0-32.0); CREATININE 0.7 mg/dL (0.55-1.02); Chloride 103 mmol/L (98-107); Estimated GFR 105.95 (mL/min/1.73m2); Glucose 120 mg/dL (74-106); Potassium 3.9 mmol/L (3.5-5.1); Sodium 140 mmol/L (136-145); Total Protein 7.6 g/dL (6.4-8.2)
[2023-08-01 13:09] LABS: ETHANOL BLOOD < 3.0 mg/dL (<10)
[2023-08-01 13:15] LABS: Bilirubin Negative (Negative); Blood Negative (Negative); Clarity Clear (Clear); Glucose Negative (Negative); Ketones Negative (Negative); Leukocyte Esterase Negative (Negative); Nitrite Negative (Negative); Specific Gravity 1.025 (1.005-1.025); Urobilinogen 0.2 mg/dL (Up to 0.2)
[2023-08-01 13:34] LABS: *AMPHETAMINES SCREEN URINE Negative (Negative); *BARBITURATES SCREEN URINE Negative (Negative); *BENZODIAZEPINES SCREEN URINE Negative (Negative); Cannabinoids THC Positive (Negative); Cocaine Screen,Urine Negative (Negative); METHADONE URINE SCREEN Negative (Negative); OPIATES URINE SCREEN Negative (Negative)
[2023-08-01 13:35] LABS: Tricyclic Antidepressants Negative (Negative)
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
[2023-08-01 14:24] VITALS: BP 124/81; PULSE 70; O2SAT 99
== END 2023-08-01 14:33 | disposition home or self-care (01) ==
PROVIDERS: Emergency Provider Emergency Medicine; PCP Nurse Practitioner Adult Health
DX: R51.9 Headache, unspecified (principal); M25.571 Pain in right ankle and joints of right foot; F17.210 Nicotine dependence, cigarettes, uncomplicated; W10.9XXA Fall (on) (from) unspecified stairs and steps, initial encounter; Y93.01 Activity, walking, marching and hiking; Y92.9 Unspecified place or not applicable; Z79.899 Other long term (current) drug therapy
CPT/HCPCS: 80053; 80307; 99284; 70450; 72125; 73610; 80320; 81003; 85025; 99283